=== PATIENT | male | born 1995 ===

== ENCOUNTER 2020-05-21 09:15 | Outpatient (RCR) | payer BC, SELFPAY ==
[2020-05-05 12:14] VITALS: BMI 20.1
--- NOTE | 2020-05-05 12:31 | PC.ADMIT ---
Patient is a 24 year old individual who uses pronouns they/them. They were referred to [facility] by PER[employer]CE [employer] ENGINEER crisis d/t mood instability. Patient stated they are here d/t depression, anxiety, and intense mood swings experiencing high highs and low lows . Describe highs as, herrera of happiness super motivated one second then the next moment exhausted and fatigued, irritable and angry . Patient presents with depressed mood, anxious affect. Denied SI at present. Gave verbal permission to email them a copy of their safety plan. No known hx of suicide attempts or self harming behaviors. 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 Patient is on no medications at present and denied any medical issues. Reports using more ETOH to cope with how they are feeling and this began at the beginning of the pandemic. Reports drinking 2-3 drinks 3-5 x a week last drink last Sunday. Denied any ETOH withdrawal sxs of hx of ETOH withdrawal symptoms. Patient also reports using marijuana 2-3 puffs 3 x a week. Agrees not to use substances while in the program. Educated patient on the negative effects ETOH and marijuana can have on physical and mental health.
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
--- NOTE | 2020-05-11 11:14 | PC.NURSE ---
I spoke to Roman at patient's PCP's office and asked if his PCP could prescribe the antidepressant Effexor that was started at the program. PCP willing to prescribe medication and patient will have a f/u appointment on June 07, 2020 at 10:[address] Pelletier.
--- NOTE | 2020-05-12 09:19 | PC.NURSE ---
Pt was not present for 9am community meeting. Pt did not call/email [facility] staff to inform of this. TW called pt to check in. TW left a voicemail and asked pt to return the call to either TW or to his clinician Sandra. Both numbers provided.
--- NOTE | 2020-05-12 09:32 | PC.NURSE ---
TW called and left a message for pt's emergency contact as pt had not reached out to the program as of yet.
--- NOTE | 2020-05-12 13:43 | PC.NURSE ---
Pt called and left a message stating he has a migraine, and that's why he didn't show up today. He apologized for not communicating and said he is safe and okay.
--- NOTE | 2020-05-13 10:45 | PC.NURSE ---
Patient is aware that his PCP Dr Pelletier will refill medication started at the PHP program and that he has a f/u appointment with Dr Pelletier. See D/C appointment.
--- NOTE | 2020-05-13 19:59 | HO.PHPPROGNO ---
Subjective Subjective Date of Service: 05/13/20 Reason For Visit: depression Interim History: Daniel reports he initiated Venlafacine ~5 days ago. Currently tolerating dosage and is ready to increase. Reports sleep is intact and appetite is consistent with no changes. Denies SI, plan or intent. Denies current medical or addiction issues. Looking to group for skill building and assertiveness training he reports. Medication Compliance: Yes Side effects from medications: No Attending Groups: Yes Review of Systems Psychiatric: Reports anxiety and Reports mood swings Mental Status Exam Mental Status Exam Patient Appearance: Appropriate Patient Orientation: Person, Place, Time and Situation Level of Consciousness: Awake and Alert Patient Behavior: Talkative, Passive and Timid Mood Description: Depressed Affect Description: Flat Patient Cognition Impaired: No Ability to Follow Directions: Good Speech Pattern: Spontaneous Speech and Soft-Spoken Memory Description: Intact Hallucinations: None Delusions: Not Present Thought Process: Intact Thought Content: positive for Intact Depressive Symptoms: Low Self Esteem Judgement: Good Diagnostics Vital Signs (24Hr): Body Mass Index 20.1 Assessment & Plan Assessment & Plan (1) MDD (major depressive disorder), recurrent episode, moderate: Status: Acute Code(s): F33.1 - Major depressive disorder, recurrent, moderate Assessment and Plan: -Increase Venlafaxine to 75 mg on 05/15/20. Certification I certify that partial hospital treatment is medically necessary due to the symptoms and problems resulting from the patient's mental illness and the failure to treat the patient at the partial hospital level of care would likely result in the patient requiring inpatient psychiatric care which could not be prevented at a less intensive level of care. Greater than 50% of the session was spent on counseling and/or coordination of care Discharge Plan Discharge Attending provider: Jack Chiu Additional Instructions: Phone appt scheduled with Dc Perkins APRN on June 22, at 4:20pm for medication management. Patient has an in person appointment with his PCP Dr Pelletier on June 07, 2020 at 10:00 Am. Medications: New venlafaxine 75 mg tablet 75 mg PO DAILY Qty: 14 RF: 0 Telehealth Telehealth Location of provider rendering services: practice address Location of patient: address on file Patient Identification confirmed using: Name, : Yes Telehealth method: video Patient verbally consented to treatment: Yes Patient verbally consented to billing insurance company: Yes Patient informed of any privacy concerns related to visit: Yes Time spent with patient (mins): 15
--- NOTE | 2020-05-14 13:34 | PC.NURSE ---
With pt's permission, I called and LM for Keyanna Awan at [facility]/ [facility] ([phone]) asking to refer pt to her weekly DBT skills groups.
--- NOTE | 2020-05-18 13:17 | PC.NURSE ---
I again left a message for Keyanna Awan looking to refer pt to her DBT group at [facility]. I have not heard back from her yet. I also called [facility] central registration and spoke to Laura. I asked about any DBT group they might have and let her know I haven't heard back from Ms. Awan. She said she'd send my info to someone by the name of Ariane Mendez, who will get back to me with info.
--- NOTE | 2020-05-18 13:39 | HO.PHPPROGNO ---
Subjective Subjective Date of Service: 05/18/20 Reason For Visit: depression Interim History: Daniel reports he feels less anxious and less depressed. He reports sleep has improved in that he is not waking up as often. He denies SI/HI. He reports groups have been helpful. He plans to return to work next week and was connected with OP psychiatric provider. Review of Systems Review of Systems Yes all other systems are reviewed and are negative Psychiatric: Reports anxiety and Reports mood swings Mental Status Exam Mental Status Exam Narrative: Appearance: casually groomed, good hygiene, in NAD Behavior: calm, cooperative Speech: clear, normal rate/rhythm/volume, spontaneous TP: linear TC: no signs of psychosis, future oriented Mood: less depressed Affect: brighter SI: denies, no plan or intent HI: none VH/AH: none Delusions: none Insight/judgment: fair x 2 Memory/cognition: alert, oriented x 3. grossly intact to conversational testing. Diagnostics Vital Signs (24Hr): Body Mass Index 20.1 Assessment & Plan Assessment & Plan (1) MDD (major depressive disorder), recurrent episode, moderate: Status: Acute Code(s): F33.1 - Major depressive disorder, recurrent, moderate Assessment and Plan: -Continue Venlafaxine to 75 mg po daily Certification I certify that partial hospital treatment is medically necessary due to the symptoms and problems resulting from the patient's mental illness and the failure to treat the patient at the partial hospital level of care would likely result in the patient requiring inpatient psychiatric care which could not be prevented at a less intensive level of care. Greater than 50% of the session was spent on counseling and/or coordination of care Discharge Plan Discharge Attending provider: Jack Chiu Additional Instructions: Phone appt scheduled with Dc Perkins APRN on June 22, at 4:20pm for medication management. Patient has an in person appointment with his PCP Dr Pelletier on June 07, 2020 at 10:00 Am. Medications: New venlafaxine 75 mg tablet 75 mg PO DAILY Qty: 14 RF: 0 Telehealth Telehealth Location of provider rendering services: practice address Location of patient: address on file Patient Identification confirmed using: Name, : Yes Telehealth method: video Patient verbally consented to treatment: Yes Patient verbally consented to billing insurance company: Yes Patient informed of any privacy concerns related to visit: Yes Time spent with patient (mins): 15
--- NOTE | 2020-05-18 15:14 | PC.NURSE ---
I spoke to Keyanna Awan from [facility] re:the [facility] program. She took demographic information and said the client will receive a phone call this week to set up an intake.
--- NOTE | 2020-05-21 15:13 | PC.NURSE ---
I called and LM with pt's therapist, Wilber Winn . I let her know about pt's discharge and clinical status at discharge, and about his enrollment in the DBT group [facility].
--- NOTE | 2020-05-26 17:20 | PM.EVENT ---
Event Note Date of Service: 05/26/20 Event Note: Call to pt [phone] as he called reporting medication questions, ?SE of feeling overwhelmed, stuart whaley to Jesi Harris RN. Message left for pt to discuss current symptoms.
== END 2020-05-21 23:55 | disposition home or self-care (01) ==
LOC: HO.PHPA 09:15
PROVIDERS: Visit Provider Psychiatry & Neurology Psychiatry
DX: F33.1 Major depressive disorder, recurrent, moderate (principal)
CPT/HCPCS: 90791; 90853